=== PATIENT | male | born 1940 | race Caucasian/White ===

== ENCOUNTER 2016-08-23 08:26 | Inpatient (IN) | payer MEDICARE ==
--- NOTE | 2016-08-30 10:09 | HP ---
DATE OF CLINIC: 08/18/2016 ANI RENDON : 1940 PLANNED PROCEDURE: Right Total Hip Arthroplasty Revision DATE OF PROCEDURE: August 31, 2016 SURGEON: Shamar Williamson M.D. PCP: Dr. Artemio Mendez HISTORY OF PRESENT ILLNESS Ani Rendon is a 75 year old male. * Medication list reviewed with patient allergy list reviewed with patient. Mr. Rendon is in today with his for his upcoming revision right total hip arthroplasty with Dr. Williamson on 08/31/16. Patient presents in good spirits and is ready to proceed. He denies recent illness or change in health. Urinalysis suggest a UTI. Patient is asymptomatic. He denies any prior surgical complications. He has A-fib chronically and is anticoagulated with aspirin. His recent consult with Dr. Williamson follows: 75-year-old male who was initially seen in our office by Umang on 01/22/16 with a sensation of right hip and knee "clunking". He had a total hip arthroplasty by Dr. Brett Castellanos approximately 15 years ago and a right TKA by Dr. Mcdonald approximately 6 years ago. For greater than 6 months he has had atraumatic sensation of a mechanical clunk when he flexes his hip and knee under loads, such as rising from a chair. Radiographs showed no obvious areas of osteolysis, loosening or wear. His acetabular component appears to be neutral anteversion on the right. I examined him with Dr. Herzog under fluoroscopy of his right knee and hip on 05/04/16. With this we were able to provocate anterior instability of the acetabular component on flexion and external rotation with subluxation. He returns today for consideration of definitive management. He has had no change in symptoms. Comorbidities include chronic bilateral peripheral neuropathy, lumbar spondylosis, non-insulin dependent diabetes, hypertension and obesity. CURRENT MEDICATION * 4X Probiotic Tablet 1 once a day 0 days, 0 refills * Aspirin Adult Low Dose 81 MG Tablet Delayed Release 1 once a day 0 days, 0 refills * Atorvastatin Calcium 10 MG Tablet 1 once a day 0 days, 0 refills * B Complex Vitamins Capsule 1 once a day 0 days, 0 refills * Calcium Citrate + D 250-200 MG-UNIT Tablet 1 once a day 0 days, 0 refills * Gabapentin 300 MG Capsule as directed 3 tabs 4 times a day, 0 days, 0 refills * Mens 50+ Multi Vitamin/Min Tablet 1 once a day 0 days, 0 refills * MetFORMIN HCl 1000 MG Tablet 1 twice a day 0 days, 0 refills * TraMADol HCl 50 MG Tablet as directed 2 tabs 4 times a day, 0 days, 0 refills PAST MEDICAL/SURGICAL HISTORY Reported: Medical: A history of cancer prostate, Reported numbness, Reported tingling, cardiac history A-fib, Diabetes Mellitus, history of Arthritis, Hypertension, and Vertigo. Surgical / Procedural: Prior surgery BiPAP, replacement of a hip bilateral hip replacements, of a knee Right knee replaced, Cholecystectomy, Prostate Surgery 2010, Carpal Tunnel Surgery 2 times, Tonsilectomy, and Back Surgery neck fusion. SOCIAL HISTORY Behavioral: Caffeine use and non-smoker quit smoking stopped smoking in 1974 after smoking half a pack a day for 7 years. Smoking status: Former smoker. Work: Occupation Retired teacher. ALLERGIES * pollen REVIEW OF SYSTEMS Systemic: No fever and no recent weight change. Head: No head symptoms. Cardiovascular: Cardiovascular symptoms chronic A-fib. Pulmonary: No pulmonary symptoms. Gastrointestinal: No gastrointestinal symptoms. Psychological: No psychological symptoms. Skin: No skin lesions and no rash. PHYSICAL FINDINGS * Vitals taken 08/18/2016 01:11 pm BP-Sitting L 120/100 mmHg 100 - 120/60 - 80 BP Cuff Size Regular Pulse Rate-Sitting 59 bpm 50 - 100 Temp-Oral 97.3 F 96 - 101 Height 67 in 64 - 74 Weight 254 lbs 121 - 205 Body Mass Index 39.8 kg/m2 Body Surface Area 2.24 m2 Pain Level 1 Ears, Nose, Throat: * ENT: normal. Lungs: * Clear to auscultation. Cardiovascular: Heart Rate and Rhythm: * Abnormal irregularly irregular. Abdomen: * Normal. Neurological: Motor: * Dominant Hand = Right Hand. No formal physical exam of the right side was performed today. TESTS X-rays are as above with respect to the hip. Knee films show a cemented posterior stabilized arthroplasty with no evidence of osteolysis, loosening or wear. He does have thin, I believe this is a Bernie triathlon. He does have very thin poly, which is not easily visualized. Patellar button remains well centered in the groove. ASSESSMENT Right hip anterior instability 15 years s/p index procedure. PREVIOUS TESTS * Test: URINALYSIS WITH MICROSCOPIC Report Date: 08/11/2016 EPITHELIAL CELL 1-3 WBC 40-50 GLUCOSE NEGATIVE BACTERIA 1+ PH,URINE 5.0 SPEC. GRAVITY 1.020 KETONE NEGATIVE NITRITE NEGATIVE RBC 1-3 BLOOD 2+ BILIRUBIN NEGATIVE APPEARANCE HAZY PROTEIN TRACE COLOR YELLOW LEUK ESTERASE 2+ UROBILINOGEN NORMAL * Test: PROTHROMBIN TIME Report Date: 08/11/2016 PROTIME 10.0 s INR 0.95 * Test: PARTIAL THROMBOPLASTIN TIME Report Date: 08/11/2016 APTT 26.1 s * Test: CBC WITH DIFF Report Date: 08/11/2016 WBC 10.0 10*3/mL MCV 96.1 fL High BASOPHIL 0.4 % RBC 4.65 10*6/uL Low NEUTROPHILS 66.5 % MCH 30.8 pg MCHC 32.0 g/dL Low RDW 12.4 % PLATELET COUNT 239 10*3/mL IMM NEUT % 0.2 % IMM NEUT # 0.0 10*3/mL MONOCYTES 7.3 % EOSINOPHIL 2.1 % HCT 44.7 % HGB 14.3 g/L LYMPHOCYTE 23.5 % ANC 6.6 10*3/mL * Test: COMPREHENSIVE METABOLIC PANEL Report Date: 08/11/2016 ALT/SGPT 18 U/L ALBUMIN 4.1 g/dL ALB/GLOB RATIO 1.5 BUN 35 mg/dL High BUN/CREAT RATIO 23 High CALCIUM 9.5 mg/dL GLUCOSE 102 mg/dL High CREATININE 1.5 mg/dL High SODIUM 139 meq/L POTASSIUM 4.9 meq/L CHLORIDE 102 meq/L CARBON DIOXIDE 26 meq/L ANION GAP 16 meq/L TOT PROTEIN 6.9 g/dL GLOBULIN 2.8 g/dL BILI,TOTAL 0.3 mg/dL AST/SGOT 19 U/L ALK PHOSPHATASE 117 U/L High GFR 46 Low * Test: URINE CULTURE Report Date: 08/13/2016 URINE CULTURE [id number] Enterococcus faecalis ENTFAE ENTEROCOCCUS FAECALIS L [id number] ENTEROCOCCUS FAECALIS * Test: MRSA SCREEN Report Date: 08/12/2016 MRSA SCREEN NEGATIVE * Test: MSSA SCREEN Report Date: 08/12/2016 MSSA SCREEN POSITIVE FOR STAPHYLOCOCCUS AUREUS Abnormal * Test: GRAM POS SENSITIVITIES (RICKI) Report Date: 08/13/2016 GRAM POS SENSITIVITIES (RICKI) 10,000 - 20,000 S THERAPY * Patient fall risk screen positive. * Patient eligible for fall risk assessment. * Patient received fall risk assessment. PLAN * OTHER OxyCONTIN 10 MG T12A, 1 po q 12 hours-TO BE USED FOR AFTER SURGERY, 10 days, 0 refills TraMADol HCl 50 MG TABS, 1 po q 6 hours prn pain-TO BE USED FOR AFTER SURGERY, 5 days, 0 refills OxyCODONE HCl 5 MG TABS, 1-2 po q 4-6 hours for break thru pain if needed-TO BE USED FOR AFTER SURGERY, 5 days, 0 refills Cipro 250 MG TABS, 1 po q 12 hours, 5 days, 0 refills * Wear of artic bearing surface of int prosth r hip jt, init Physical Therapy: [facility] * Total hip replacement -Right Revision Discussed with patient in detail the limitations, expectations as well as risks and possible complications of surgery including, but not limited to wound problems or infection, neurovascular injury, continued hip pain or dysfunction, postop instability including the possibility of dislocation and/or postop leg length discrepancy, and the possibility of prosthetic wear or failure over time that may require additional operative or non-operative treatment. Patient also realizes the perioperative risks including risks associated with anesthesia and would like to proceed. A full PAR conference was held, questions and concerns addressed and informed consent was obtained. Patient will be sent from my office for completion of the preoperative workup. [facility]. Patient will use enteric coated aspirin 325mg daily for 6 weeks postoperatively for DVT prophylaxis. Patient would like to perform their postop PT at [facility] with right total hip arthroplasty protocol, posterior hip precautions. CARE TEAM Artemio Mendez DO [facility] CC: Artemio Mendez DO [facility] RS/sg
[2016-08-31] MEDS ORDERED: CEFAZOLIN SODIUM 2 GRAM PREMIX 100 ML IV PRN (05:30)
[2016-08-31] MEDS ORDERED: CLONIDINE HCL 0.1 MG/24 HR (7 DAY PATCH) TD SCH (05:30)
[2016-08-31] MEDS ORDERED: TRAMADOL HCL 50 MG TABLET PO ONE (05:30)
[2016-08-31] MEDS ORDERED: ONDANSETRON 4 MG/2ML 2 ML VIAL IV ONE (05:30)
[2016-08-31] MEDS ORDERED: GABAPENTIN 600 MG TABLET PO ONE (05:30)
[2016-08-31] MEDS ORDERED: CELECOXIB 200 MG CAPSULE PO ONE (05:30)
[2016-08-31] MEDS ORDERED: OXYCODONE HCL 10 MG TAB.SR PO ONE ×2 (05:30→06:20)
[2016-08-31] MEDS ORDERED: FAMOTIDINE 20 MG TABLET PO ONE (05:30)
[2016-08-31] MEDS ORDERED: IV START KIT ONE (05:33)
[2016-08-31] MEDS ORDERED: LACTATED RINGERS 1,000 ML ONE ×2 (05:33→07:20)
[2016-08-31] MEDS ORDERED: TRAMADOL HCL 50 MG TABLET ONE (06:20)
[2016-08-31] MEDS ORDERED: FAMOTIDINE 20 MG TABLET ONE (06:20)
[2016-08-31] MEDS ORDERED: CELECOXIB 200 MG CAPSULE ONE (06:20)
[2016-08-31] MEDS ORDERED: CLONIDINE HCL 0.1 MG/24 HR (7 DAY PATCH) TD ONE (06:20)
[2016-08-31] MEDS ORDERED: ONDANSETRON 4 MG/2ML 2 ML VIAL ONE ×2 (06:20→09:08)
[2016-08-31] MEDS ORDERED: GABAPENTIN 600 MG TABLET ONE (06:20)
[2016-08-31] MEDS ORDERED: FENTANYL 100 MCG/2 ML VIAL ONE (06:29)
[2016-08-31] MEDS ORDERED: LIDOCAINE 2% (PRES FREE) 5 ML VIAL ONE (06:29)
[2016-08-31] MEDS ORDERED: PROPOFOL 20 ML IV ONE ×2 (06:29)
[2016-08-31] MEDS ORDERED: MIDAZOLAM HCL 5 MG/5 ML VIAL ONE (06:29)
[2016-08-31] MEDS ORDERED: SPINAL PROCEDURAL TRAY 1 EACH ONE (07:07)
[2016-08-31] MEDS ORDERED: POLYMYXIN B SULFATE 500,000 UNITS, BACITRACIN 25,000 UNITS in SODIUM CHLORIDE 3 L IRRIG... IR PRN (07:50)
[2016-08-31] MEDS ORDERED: BUPIVACAINE 0.25% (MDV) 24 ML, MORPHINE SULFATE 8 MG, EPINEPHRINE 0.3 MG in SODIUM CHLO... IF PRN (07:50)
[2016-08-31] MEDS ORDERED: TRANEXAMIC ACID 1,000 MG in SODIUM CHLORIDE 0.9% 100 ML IV PRN (07:50)
[2016-08-31] MEDS ORDERED: BUPIVACAINE 0.25% (MDV) 20 ML in SODIUM CHLORIDE 0.9% FLUSH 20 ML IF PRN (07:50)
[2016-08-31] MEDS ORDERED: EPHEDRINE SULFATE UD SYR 25 MG 25 MG/5 ML SYRINGE IV ONE ×2 (08:24→09:28)
[2016-08-31] MEDS ORDERED: MIDAZOLAM HCL 1 MG/ML 2ML VIAL ONE (08:52)
[2016-08-31] MEDS ORDERED: FAMOTIDINE 10 MG/ML 2ML VIAL ONE (09:08)
[2016-08-31] MEDS ORDERED: ATROPINE SULFATE 0.4 MG/1 ML VIAL IV PRN (10:07)
[2016-08-31] MEDS ORDERED: FENTANYL 100 MCG/2 ML VIAL IV PRN (10:07)
[2016-08-31] MEDS ORDERED: ONDANSETRON 4 MG/2ML 2 ML VIAL IV PRN ×2 (10:07→11:21)
[2016-08-31] MEDS ORDERED: PROMETHAZINE HCL 25 MG/ML VIAL IM PRN (10:07)
[2016-08-31] MEDS ORDERED: NALOXONE HCL 0.4 MG/ML VIAL IV PRN (10:07)
[2016-08-31] MEDS ORDERED: HYDROMORPHONE HCL 1 MG/ML SYRINGE IV PRN (10:07)
[2016-08-31] MEDS ORDERED: LACTATED RINGERS 1,000 ML IV SCH (10:15)
--- NOTE | 2016-08-31 11:19 | RAD ---
PELVIS HISTORY: Status post total hip arthroplasty revision. Frontal portable radiograph of the lower pelvis and hips. COMPARISON: 01/22/2016. FINDINGS: POSTPROCEDURAL CHANGE: Status post right total hip arthroplasty revision. Evidence of prior left hip arthroplasty and prostatectomy. ALIGNMENT: Grossly anatomic. FRACTURE: None identified. ADDITIONAL POSTPROCEDURAL FINDINGS: Soft tissue gas. LUMBAR SPINE: Prominent features of disc degeneration. IMPRESSION: Grossly unremarkable immediate post arthroplasty appearance of the right hip.
[2016-08-31] MEDS ORDERED: OXYCODONE HCL 5 MG TABLET PO PRN (11:21)
[2016-08-31] MEDS ORDERED: HYDROMORPHONE HCL 0.5 MG/0.5 ML SYRINGE IV PRN (11:21)
[2016-08-31] MEDS ORDERED: CALCIUM CARBONATE 500 MG TAB.CHEW PO PRN (11:21)
[2016-08-31] MEDS ORDERED: KETOROLAC TROMETHAMINE 30 MG/ML 1 ML VIAL IV PRN (11:21)
[2016-08-31 12:52] VITALS: BMI 39.2
[2016-08-31] MEDS ORDERED: PUMP TUBING ONE (13:01)
[2016-08-31] MEDS: D5 1/2NS with 20 mEq KCL 1,000 ML IV SCH ×2 (13:15→21:53)
[2016-08-31] MEDS ORDERED: CEFAZOLIN SODIUM 1 GM IV ONE (16:50)
[2016-08-31] MEDS: CEFAZOLIN SODIUM 1 GRAM PREMIX 1 G in Premix (D5W) 50 ml 1 EACH IV SCH (16:59)
[2016-08-31] MEDS: TRAMADOL HCL 50 MG TABLET PO SCH ×2 (16:59→21:53)
[2016-08-31] MEDS: ACETAMINOPHEN 500 MG TABLET PO SCH (16:59)
[2016-08-31] MEDS ORDERED: INSULIN ASPART (DOSE) 100 UNITS/1 ML SUB-Q PRN (17:13)
--- NOTE | 2016-08-31 17:34 | CONS ---
ANI GO : 1940 CONSULTATION DATE OF ADMISSION: August 31, 2016 CHIEF COMPLAINT: Right total hip arthroplasty revision. REASON FOR CONSULTATION: To help with medical management of Mr. Go's chronic medical conditions following right total hip revision with Dr. Williamson today. HISTORY OF PRESENT ILLNESS: The patient is a morbidly obese 75-year-old male who has had bilateral hip arthroplasties with the left originally being replaced in 1999 due to osteoarthritis. The arthroplasty components were found to be broken down and causing him increased pain and he had a revision today. Currently he has no complaints and is doing well. His pain is well controlled. REVIEW OF SYSTEMS: GENERAL: No fevers. ENT: Congestion. No throat pain or ear pain. CARDIOVASCULAR: No chest pain or pressure. RESPIRATORY: No difficulty in breathing, no cough. ABDOMEN: No nausea, vomiting, abdominal pain. GENITOURINARY: No difficulty with urination. MUSCULOSKELETAL: Arthritis. NEUROLOGIC: He has numbness and tingling in his hands and feet. No headaches. PAST MEDICAL HISTORY: Includes: 1. Diabetes. 2. Hypertension. 3. Prostate cancer. 4. Peripheral neuropathy. 5. Paroxysmal atrial fibrillation. 6. Gait instability. 7. Chronic kidney disease stage 3. ALLERGIES: NONE. PAST SURGICAL HISTORY: 1. Bilateral hip arthroplasties. 2. Cholecystectomy. 3. Carpal tunnel release. 4. Radical retropubic prostatectomy. 5. Knee arthroplasty. 6. Neck fusion. MEDICATIONS: Include: 1. Probiotic. 2. Aspirin. 3. Atorvastatin. 4. B complex. 5. Calcium citrate plus vitamin D. 6. Gabapentin. 7. Multivitamin. 8. Metformin. 9. Tramadol. SOCIAL HISTORY: Patient is a retired teacher tutor. He has had two marriages and two divorces. He denies any alcohol, tobacco or marijuana. PHYSICAL EXAM: VITAL SIGNS: Temperature 98, blood pressure 108/47, heart rate 67, saturating 100% on 2 liters per nasal cannula. GENERAL: He is alert and oriented, morbidly obese. Not in acute distress. Cooperative. HEENT: Normocephalic, atraumatic. No tenderness to palpation. His mucous membranes are moist. His pupils are equal, round and reactive. Extraocular muscles are intact. There is no scleral icterus or conjunctival injection. NECK: Supple. Trachea midline. CARDIOVASCULAR: Regular, positive S1 and S2. He has palpable pulses bilaterally radially. RESPIRATORY: Clear to auscultation bilaterally. No rhonchi or wheezing. ABDOMEN: Soft, nontender. No distention, no rebound or guarding. MUSCULOSKELETAL: Moving extremities without difficulty. NEUROLOGIC: He is alert and oriented. LABORATORIES: Laboratory studies on August 11, 2016, he had a white blood cell count of 10.0, hemoglobin 14.3, with a hematocrit of 44, and a platelet count of 239. PT of 10.0 seconds and an INR of 0.95. Sodium 139, potassium 4.9, chloride 102, carbon dioxide 26, BUN 35 with a creatinine of 1.5, glucose of 102. ASSESSMENT: This is a 75-year-old male postoperative day one of a right total hip revision consult for medical management of his chronic medical conditions. PLAN: 1. Diabetes. We will put him on a diabetic diet and provide sliding scale meal coverage and resume his metformin on discharge. 2. Hypertension, stable. We will continue his home medications. 3. Paroxysmal atrial fibrillation. We will monitor for symptoms and treat as necessary. 4. Peripheral neuropathy. We will continue his gabapentin and for his gait instability, we will have him work with physical therapy. 5. Chronic kidney disease. We will monitor his renal function and provide IV fluids as necessary. Thank you for this consultation.
[2016-08-31] MEDS: GABAPENTIN 300 MG CAPSULE PO SCH (21:52)
[2016-08-31] MEDS: DOCUSATE SODIUM 100 MG CAPSULE PO SCH (21:53)
[2016-08-31] MEDS: ASCORBIC ACID 500 MG TABLET PO SCH (21:53)
[2016-08-31] MEDS: ATORVASTATIN CALCIUM 10 MG TABLET PO SCH (21:53)
[2016-09-01] MEDS: CEFAZOLIN SODIUM 1 GRAM PREMIX 1 G in Premix (D5W) 50 ml 1 EACH IV SCH (00:32)
[2016-09-01] MEDS: ACETAMINOPHEN 500 MG TABLET PO SCH ×5 (00:33→23:14)
[2016-09-01] MEDS ORDERED: REMOVE PATCH 1 EACH UNIT TD SCH (05:30)
[2016-09-01] MEDS: D5 1/2NS with 20 mEq KCL 1,000 ML IV SCH ×3 (06:07→19:51)
[2016-09-01 06:14] LABS: HEMATOCRIT 34.4 % (32.0-52.0); HEMOGLOBIN 10.8 gm/l (14.0-18.0); MEAN CELL VOLUME 97.2 fl (80.0-94.0); MEAN CORPUSCULAR HEMOGLOBIN 30.5 pg (27.0-31.0); MEAN CORPUSCULAR HGB CONC 31.4 g/dl (33.0-37.0); RED CELL DISTRIBUTION WIDTH 12.3 % (11.5-14.5)
[2016-09-01 06:42] LABS: CALCIUM 8.1 mg/dL (8.6-10.3)
[2016-09-01] MEDS: GABAPENTIN 300 MG CAPSULE PO SCH ×4 (08:26→20:56)
[2016-09-01] MEDS: CELECOXIB 200 MG CAPSULE PO SCH (08:26)
[2016-09-01] MEDS: ASPIRIN (ENTERIC COATED) 325 MG TABLET.EC PO SCH (08:27)
[2016-09-01] MEDS: ASCORBIC ACID 500 MG TABLET PO SCH ×2 (08:27→20:56)
[2016-09-01] MEDS: DOCUSATE SODIUM 100 MG CAPSULE PO SCH ×2 (08:27→20:56)
[2016-09-01] MEDS: MULTIVITAMINS 1 TAB TABLET PO SCH (08:28)
[2016-09-01] MEDS: TRAMADOL HCL 50 MG TABLET PO SCH ×4 (08:28→20:56)
[2016-09-01] MEDS ORDERED: POLYETHYLENE GLYCOL 3350 17 G POWD.SUSP PO PRN (08:33)
[2016-09-01] MEDS ORDERED: FUROSEMIDE 20 MG TABLET PO ONE (08:34)
--- NOTE | 2016-09-01 08:49 | PDOC43 ---
- Subjective Chief Complaint: RTH revision Patient doing well. Pain controlled. Denies shortness of breath, chest pain. He is tolerating diet Subjective: Reports Pain Tolerable, Reports Tolerating Diet Well, Reports Adequate Oral Intake, Denies Shortness of Breath, Denies Cough, Denies Chest Pain, Denies Abdominal Pain, Denies Nausea, Denies Vomiting - Objective Vital Signs Temperature 98.8 F 09/01/16 07:30 Pulse Rate 60 09/01/16 07:30 Respiratory Rate 20 09/01/16 07:30 Blood Pressure 130/66 09/01/16 07:30 O2 Saturation by Pulse Oximetry 94 09/01/16 07:30 Oxygen Delivery Method Room Air Oxygen Flow Rate 0 Intake and Output 08/30/16 08/31/16 09/01/16 23:59 23:59 23:59 Intake Total 4050 1669 Output Total 1550 1300 Balance 2500 369 General: Alert, Oriented x3, Cooperative, Other (morbidly obese), No Acute Distress HEENT: Atraumatic, PERRLA, EOMI, Mucous membr. moist/pink Lungs: Clear to Auscultation Bilaterally, Normal Air Movement Cardiovascular: Regular Rate and Rhythm, Normal S1, Normal S2 Abdomen: Soft, Mild Distention, No Rigid, No Tenderness, No Rebounding Extremities: Edema, No Cyanosis, No Tenderness Neurological: Normal Speech Psych/Mental Status: Normal Mood Laboratory 09/01/16 05:30 09/01/16 05:30 09/01/16 09/01/16 08/31/16 08:30 05:30 20:54 RBC 3.54 L MCV 97.2 H MCHC 31.4 L Estimated GFR 50 L POC Capillary Glucose 131 H 107 H Calcium 8.1 L 08/31/16 11:16 RBC MCV MCHC Estimated GFR POC Capillary Glucose 103 H Calcium Current Medications: Current meds reviewed in EMR. - Problems: Assessment/Plan (1) History of right hip replacement Status: AcuteAssessment/Plan: S/P revision, post-op day 1. Managed per ortho recommendations (2) Obesity (BMI 35.0-39.9 without comorbidity) Status: ChronicAssessment/Plan: complicates medical care (3) Hypertension Status: ChronicAssessment/Plan: stable (4) DMII (diabetes mellitus, type 2) Qualifiers: Diabetes mellitus complication status: with neurologic complications Diabetes mellitus complication detail: with polyneuropathy Diabetes mellitus assisted insulin use: without terminal operations supervisor use Qualifier Code: ( E11.42) Type 2 diabetes mellitus with diabetic polyneuropathy Status: ChronicAssessment/Plan: stable, continue medications (5) CKD (chronic kidney disease) stage 3, GFR 30-59 ml/min Status: SuspectedAssessment/Plan: monitor, contributes to elevated potassium. Cre 1.5 pre-op labs and 1.4 today. (6) Peripheral neuropathy Qualifiers: Peripheral neuropathy type: polyneuropathy, unspecified Qualifier Code : (G62.9) Polyneuropathy, unspecified Status: ChronicAssessment/Plan: unknown etiology, continue gabapentin. Contributes to poor gait stability (7) Gait instability Status: ChronicAssessment/Plan: 2nd to peripheral neuropathy and patient has falls at home due to decreased plantar sensation. Work with PT (8) Hyperkalemia Status: AcuteAssessment/Plan: elevation overnight. Will give dose of lasix and monitor
[2016-09-01] MEDS ORDERED: REMOVE PATCH 1 EACH UNIT TD ONE (10:41)
[2016-09-01] MEDS ORDERED: MAGNESIUM HYDROXIDE 30 ML UDCUP PO PRN (10:41)
--- NOTE | 2016-09-01 18:01 | PDOC43 ---
- Subjective Subjective: Reports Pain Tolerable, Reports Other (subtle point tenderness at the mid lateral calf last night), Denies Shortness of Breath, Denies Nausea, Denies Vomiting - Objective Vital Signs Temperature 98.0 F 09/01/16 13:16 Pulse Rate 50 09/01/16 13:16 Respiratory Rate 20 09/01/16 14:00 Blood Pressure 110/56 09/01/16 13:16 O2 Saturation by Pulse Oximetry 95 09/01/16 13:16 Oxygen Delivery Method Room Air Oxygen Flow Rate 0 Laboratory 09/01/16 05:30 09/01/16 05:30 09/01/16 09/01/16 09/01/16 11:48 08:30 05:30 RBC 3.54 L MCV 97.2 H MCHC 31.4 L Estimated GFR 50 L POC Capillary Glucose 121 H 131 H Calcium 8.1 L 08/31/16 20:54 RBC MCV MCHC Estimated GFR POC Capillary Glucose 107 H Calcium Active Medication Orders Category Date Time Status Acetaminophen [Tylenol] Med 08/31/16 17:00 Active 1,000 mg PO Q6H Ascorbic Acid [Vitamin C] Med 08/31/16 21:00 Active 500 mg PO BID Aspirin (Enteric Coated) [Ecotrin] Med 09/01/16 09:00 Active 325 mg PO DAILY Atorvastatin Calcium [Lipitor] Med 08/31/16 21:00 Active 10 mg PO BEDTIME Bisacodyl [Dulcolax] Med 09/03/16 10:41 Active 10 mg CA DAILY PRN Calcium Carbonate [Tums] Med 08/31/16 11:21 Active 1,000 - 2,000 mg PO Q2H PRN Celecoxib [Celebrex] Med 09/01/16 09:00 Active 200 mg PO DAILY D5 1/2NS with 20 mEq KCL [D51/2NS with 20 mEq KCL] 1, Med 08/31/16 11:21 Active 000 ml IV 125 mls/hr Docusate Sodium [Colace] Med 08/31/16 21:00 Active 100 mg PO BID Gabapentin [Neurontin] Med 08/31/16 21:00 Active 900 mg PO QID Hydromorphone HCl [Dilaudid] Med 08/31/16 11:21 Active 0.5 mg IV Q1H PRN Insulin Aspart (Dose) [Novolog (Dose)] Med 08/31/16 17:13 Active See Protocol SUB-Q TIDWM PRN Magnesium Hydroxide [Milk of Magnesia] Med 09/01/16 10:41 Active 30 ml PO DAILY PRN Multivitamins [One-A-Day] Med 09/01/16 09:00 Active 1 tab PO DAILY Ondansetron 4 mg/2ml Vial [Zofran] Med 08/31/16 11:21 Active 4 - 6 mg IV Q6H PRN Oxycodone HCl [Roxicodone] Med 08/31/16 11:21 Active 5 - 10 mg PO Q4H PRN Polyethylene Glycol 3350 [Miralax] Med 09/01/16 08:33 Active 17 g PO DAILY PRN Sodium Chloride 0.9% Flush [Normal Saline 10ml Flush] Med 08/31/16 11:21 Active 10 - 50 ml IV PRN PRN Sodium Chloride 0.9% Flush [Normal Saline 10ml Flush] Med 08/31/16 17:00 Active 10 ml IV Q8HR Tramadol HCl [Ultram] Med 08/31/16 17:00 Active 100 mg PO QID Intake and Output 08/30/16 08/31/16 09/01/16 23:59 23:59 23:59 Intake Total 4050 2670 Output Total 1550 1702 Balance 2500 968 General: No Acute Distress Lungs: Normal Air Movement Abdomen: No Tenderness Psych/Mental Status: Normal Affect - Right Lower Extremity Motor: Extensor Hallucis Longus: 5/5, Tibialis Anterior: 5/5, Gastrocnemius: 5/5 , Peroneals: 5/5, Quadriceps: 4/5 Gross Sensation to Light Touch: Present: Deep Peroneal Nerve (peripheral neuropathy, diminished foot sensation, pre existing) Motion: Right hip PROM: flexion to 60 derees, no pain ABD to 30 degrees, no pain ADD to 10 degrees, no pain - Problems (1) History of right hip replacement Status: Acute - Disposition POD #1 Right hip revision, liner exchange Pain control with pain pills DVT prophylaxis PT: WBAT with PT assist/walker, posterior hip precautions. Dressing change tomorrow [facility] controlled and clears PT. Ortho appreciates collaboration with Hospitalist team.
[2016-09-01] MEDS: ATORVASTATIN CALCIUM 10 MG TABLET PO SCH (20:56)
[2016-09-02] MEDS: D5 1/2NS with 20 mEq KCL 1,000 ML IV SCH (04:54)
[2016-09-02] MEDS: ACETAMINOPHEN 500 MG TABLET PO SCH ×3 (05:35→16:52)
[2016-09-02 07:02] LABS: HEMATOCRIT 32.5 % (32.0-52.0); HEMOGLOBIN 10.5 gm/l (14.0-18.0)
[2016-09-02 07:14] LABS: CALCIUM 8.1 mg/dL (8.6-10.3)
[2016-09-02] MEDS: MULTIVITAMINS 1 TAB TABLET PO SCH (08:25)
[2016-09-02] MEDS: DOCUSATE SODIUM 100 MG CAPSULE PO SCH (08:26)
[2016-09-02] MEDS: ASCORBIC ACID 500 MG TABLET PO SCH (08:26)
[2016-09-02] MEDS: CELECOXIB 200 MG CAPSULE PO SCH (08:26)
[2016-09-02] MEDS: TRAMADOL HCL 50 MG TABLET PO SCH ×2 (08:26→15:33)
[2016-09-02] MEDS: GABAPENTIN 300 MG CAPSULE PO SCH ×2 (08:27→15:33)
[2016-09-02] MEDS: ASPIRIN (ENTERIC COATED) 325 MG TABLET.EC PO SCH (09:00)
--- NOTE | 2016-09-02 09:20 | SURGPATH ---
[facility] [address] [place] [address] Patient Name: ANI GO MR#: [id number] : 1940 Gender: M Specimen #: [id number] Collected: 08/31/2016 Received: 09/01/2016 Reported: 09/02/2016 Submitting Phys: HALLE MORENO A Copy To Phys: [facility] NA MILLER Clinical History / Pre-Operative Diagnosis: NOT PROVIDED Specimen Source / Surgical Procedure Performed: right hip synovium Intraoperative Consult: FSDX: 0-1 neutrophils per high power field/JANEL (Performed at [facility], [address] [place] [address], [facility]. Stain quality is good.) Interpretation: RIGHT HIP SYNOVIUM, EXCISION: - LESS THAN ONE NEUTROPHIL PER HPF Electronically Signed Out Na Alonzo M.D. Gross Description: The specimen is received fresh labeled with the patient's name and "right hip synovium". The specimen consists of a 2.0 x 1.0 x 0.5 cm aggregate of white-chua rubbery tissue fragments. The specimen was entirely submitted for frozen section diagnosis. 1A frozen section remnant of entire specimen ROSENDO Walker Microscopic Description: Microscopic performed. 1: 91462, 63221 M25.851
--- NOTE | 2016-09-02 10:10 | PDOC43 ---
- Subjective Findings: Ortho POD 2 Rev R ESTHER Patient awake, A and O times 4 this am and in good spirits. States he wants to go home today as he's been through this 4 times. No present c/o other than baseline hand pain secondary to chronic neuropathy. Hip pain is very well controlled. Denies CP/SOB/NV. Taking a regular diet and positive flatus. Good progress with ambulatory PT. Has support at [facility]. Subjective: Denies Chest Pain, Denies Shortness of Breath, Denies Nausea, Denies Vomiting, Denies Fever - Objective Vital Signs Temperature 97.8 F 09/02/16 07:30 Pulse Rate 62 09/02/16 08:30 Respiratory Rate 20 09/02/16 07:30 Blood Pressure 130/57 09/02/16 08:30 O2 Saturation by Pulse Oximetry 94 09/02/16 08:30 Oxygen Delivery Method Room Air Oxygen Flow Rate 0 Laboratory 09/02/16 06:10 09/02/16 06:10 09/02/16 09/01/16 09/01/16 06:10 20:55 11:48 BUN 26 H Estimated GFR 46 L POC Capillary Glucose 115 H 121 H Calcium 8.1 L Active Medication Orders Category Date Time Status Acetaminophen [Tylenol] Med 08/31/16 17:00 Active 1,000 mg PO Q6H Ascorbic Acid [Vitamin C] Med 08/31/16 21:00 Active 500 mg PO BID Aspirin (Enteric Coated) [Ecotrin] Med 09/01/16 09:00 Active 325 mg PO DAILY Atorvastatin Calcium [Lipitor] Med 08/31/16 21:00 Active 10 mg PO BEDTIME Bisacodyl [Dulcolax] Med 09/03/16 10:41 Active 10 mg MO DAILY PRN Calcium Carbonate [Tums] Med 08/31/16 11:21 Active 1,000 - 2,000 mg PO Q2H PRN Celecoxib [Celebrex] Med 09/01/16 09:00 Active 200 mg PO DAILY D5 1/2NS with 20 mEq KCL [D51/2NS with 20 mEq KCL] 1, Med 08/31/16 11:21 Active 000 ml IV 125 mls/hr Docusate Sodium [Colace] Med 08/31/16 21:00 Active 100 mg PO BID Gabapentin [Neurontin] Med 08/31/16 21:00 Active 900 mg PO QID Hydromorphone HCl [Dilaudid] Med 08/31/16 11:21 Active 0.5 mg IV Q1H PRN Insulin Aspart (Dose) [Novolog (Dose)] Med 08/31/16 17:13 Active See Protocol SUB-Q TIDWM PRN Magnesium Hydroxide [Milk of Magnesia] Med 09/01/16 10:41 Active 30 ml PO DAILY PRN Multivitamins [One-A-Day] Med 09/01/16 09:00 Active 1 tab PO DAILY Ondansetron 4 mg/2ml Vial [Zofran] Med 08/31/16 11:21 Active 4 - 6 mg IV Q6H PRN Oxycodone HCl [Roxicodone] Med 08/31/16 11:21 Active 5 - 10 mg PO Q4H PRN Polyethylene Glycol 3350 [Miralax] Med 09/01/16 08:33 Active 17 g PO DAILY PRN Sodium Chloride 0.9% Flush [Normal Saline 10ml Flush] Med 08/31/16 11:21 Active 10 - 50 ml IV PRN PRN Sodium Chloride 0.9% Flush [Normal Saline 10ml Flush] Med 08/31/16 17:00 Active 10 ml IV Q8HR Tramadol HCl [Ultram] Med 08/31/16 17:00 Active 100 mg PO QID Intake and Output 08/31/16 09/01/16 09/02/16 23:59 23:59 23:59 Intake Total 4050 2670 200 Output Total 1550 1702 350 Balance 2500 968 -150 Neurological: No Normal Gait (ambulating with a walker post revision R ESTHER) Peripheral Pulses: Right Posterior Tibialis: 1+, Right Dorsalis Pedis: 1+ - Right Lower Extremity Incision: Well Approximated (with a sub Q closure, skin glue and steris. Moderate thigh edema but SNT, calf SNT.), No Dressing Saturated, No Shadow Drainage, No Drainage, No Erythema, No Rash, No Jeannie Intact (none) Motor: Extensor Hallucis Longus: 5/5, Tibialis Anterior: 5/5, Gastrocnemius: 5/5 , Peroneals: 5/5, Quadriceps: 4/5 Gross Sensation to Light Touch: Present: Deep Peroneal Nerve, Superficial Peroneal Nerve, Medial Plantar Nerve, Lateral Plantar Nerve, Sural Nerve, Saphenous Nerve Motion: Supine Hip flexion to 60, abduction to 25, SLR without assist. Passive planes improved. Ankle: full AROM. - Disposition Ortho POD #2 Right hip revision, liner exchange Continue anticoagulation as written Continue PT: WBAT with PT assist/walker, posterior hip precautions. Dressing changed. May go without dressing and utilize underwear only. Anticipate D[facility]C [facility]. Appreciate Hospitalist care.
[2016-09-02 13:23] VITALS: BP 101/54
--- NOTE | 2016-09-03 09:57 | OP ---
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 PROCEDURE: Revision Arthroplasty Right Hip Acetabular Component and Femoral Head COMPONENTS: 20 degree series 2 polyethylene liner, 32mm delta ceramic femoral head with a +5 C-taper adaptor sleeve. SURGEON: Teri ASSIST: Christie (TREASURE) ANESTHESIA: Spinal EBL: 200 cc URINE OUTPUT: 125 cc IVF REPLACEMENT: Per anesthesia, 2.8 liters crystalloid DRAINS: None COMPLICATIONS: None PATHOLOGY: 1 specimen frozen section histopathologic analysis with 0:1 white blood cells per high powered field. HISTORY: Briefly, patient is a 75-year-old male who is s/p a primary ESTHER done elsewhere approximately 15 years ago. He has developed a clunk and sensation of instability. Fluoroscopic exam demonstrated instability of the hip prosthesis. Recommendation to proceed with revision arthroplasty. For additional details, refer to previously dictated Preoperative History and Physical Exam. A full PAR conference was held, questions and concerns were addressed, and informed consent was obtained. FINDINGS: Intraoperative findings showed fragmentation posterior acetabular liner and to several pieces with delamination obvious. I was able to demonstrate posterior instability on exam under direct visualization. Femoral component and acetabular shell were solid. PROCEDURE: The patient was taken to the operating room. Spinal anesthetic was administered. He was placed in the lateral decubitus position on the operating room table and held with the peg board positioner. Judson prominences were well padded and an axillary roll was placed. The right hip girdle and lower extremity were then prepped and draped out in the usual sterile fashion. Preoperative IV antibiotics were given empirically. Intraoperative DVT prophylaxis consisted of bilateral mechanical foot pumps. Personal filtration suits were used as was a closed room environment. After a WHO timeout the central 2/3 of the previous posterolateral incision was utilized. We dissected through subcutaneous and electrocautery was used at this point and throughout the duration of the case to establish and maintain hemostasis. The gluteus fascia as well as proximal aspect of the IT band were incised in line with the incision after creating our fascial plane. The muscle fibers split to expose the underlying scarred bursal tissue. Tranexamic acid was infiltrated over 10 minutes prior to incision, 1 gram dose per protocol. A similar 2nd dose was given at initiation of closure. A deep self retaining field retractor was placed. The pseudo-capsular tissue was intact. This was reflected off of the trochanter. There was no defined piriformis. This was done in a U fashion and tagged for later repair. Release of the capsule allowed for dislocation of the hip and the femoral head was brought up into the operative field. The cobalt chrome component was intact. This was disengaged from the trunnion. The trunnion itself showed minimal oxidation. We evaluated the proximal femur; as expected, there was no evidence of femoral stem failure. This was quite solid. We then established a pocket superiorly and anteriorly using blunt dissection techniques and translated the femur anteriorly exposing the acetabular component. There was obvious fragmentation of the posterior liner. This was cleaned of soft tissue as well as superior and posterior osteophytes under direct visualization. We then disengaged this with a screw technique. The apical hole cover was removed. The acetabular component itself was solid and in reasonable alignment. After debridement we placed acetabular trials. I was happiest with the 20 degree lip. We placed femoral trials as well and a 0.5 established good soft tissue balance, reasonably equal leg lengths and with reduction had stability to 65 degrees of IR and 90 degrees of flexion and full extension with no instability on external rotation. Satisfied, trial components were removed and we impacted the true acetabular polyethylene with the apex of the lip at the direct posterior position. The trunnion was then cleaned and dried and the femoral head was impacted after placement of a universal sleeve. The hip was then reduced with stability as previously discussed. Satisfied, we turned our attention to closure. The wound was copiously irrigated with antibiotic pulsatile lavage. We then advanced the pseudo-capsule to the gluteus medius insertion. The gluteus fascia and IT band were closed with interrupted #1 Vicryl. 1st periarticular injection was given at this point per protocol into the capsule, synovium, gluteus medius and external rotators. The subcutaneous tissue was closed with interrupted 2-0 and 3-0 Vicryl and the skin was closed with a running 4-0 Monocryl stitch with Indermil and Steri-Strips. The 2nd periarticular injection was done at this point per protocol into the subcutaneous tissue superiorly and anteriorly to the incision. A sterile hip dressing was then applied, the patient was returned to the supine position, transferred to their hospital bed, and sent to the postoperative recovery room in stable condition. They tolerated the procedure well. Sponge, instrument, and needle count were correct. TITO/mrw CC: Artemio Mendez DO, PT [facility]
--- NOTE | 2016-09-03 09:58 | DS ---
Jose C GO [id number] : 1940 DATE OF ADMISSION: August 31, 2016 DATE OF DISCHARGE: September 02, 2016 DISCHARGE DIAGNOSES: Revision right total hip acetabular liner and femoral head. HOSPITAL PROCEDURES: Right total hip arthroplasty revision. SURGEON: Shamar Williamson M.D. BRIEF HISTORY: Patient is a 75-year-old male with both clinical and radiographic evidence of right hip instability secondary to component wear this requiring revision. For the full history please see the chart note. BRIEF HOSPITAL COURSE: Patient was admitted on August 31, 2016 Dr. Shamar Williamson performed a revision right total hip acetabular liner and femoral head. Patient was moved to the recovery room in stable condition. They were given 4 doses of antibiotic for empiric coverage. DVT prophylaxis consisted of aspirin 325 mg daily, pneumatic compression ZOE hose and mobility. PT was instituted postop day 1 with right total hip arthroplasty protocol, weightbearing as tolerated. Their incision site remained benign, their vital signs remained stable and they remained neurally and vascularly intact through the duration of the stay. They were discharged home postop day, 2 to his adult senior care facility where he resides and has a good support network, he will be doing his outpatient PT at [facility] with right total hip arthroplasty protocol, weightbearing as tolerated keeping posterior hip precautions in mind. Kirit Harding M.D. consulted to manage perioperative medical comorbidities for his consultation see the chart note. DISCHARGE INSTRUCTIONS: 1. Keep the wound site clean and dry, change dressing daily or as needed. 2. Continue the use of ZOE hose bilaterally. 3. Ice pack over the wound site prn. 4. Continue total hip precautions. 5. Outpatient PT at [facility] with right posterior hip arthroplasty protocol, weightbearing as tolerated. MEDICATIONS: 1. Patient is to resume normal preop medications. 2. Anti-coagulation will be with aspirin 325 mg daily for six weeks. 3. Pain management will be with OxyContin, 10mg every 12 hours x 10 days, Oxycodone, 5mg 1-2 every 4 hours prn for breakthrough pain, and Tramadol, 50mg every 6 hours prn pain. 4. Patient was also advised on utilization of a multi-vitamin with mineral daily as well as Vitamin C, 500mg, daily for 1 month. 5. Patient encouraged to take an iron supplement in the form of ferrous sulfate, 325mg daily for 4 weeks. 6. Colace, 100mg, b.i.d. until regular bowel movement. FOLLOW-UP: Please return to the clinic as scheduled for your first scheduled postop check. Prior to that point in time please call with any questions or concerns. Job [id number] CC: [place] Mihir Mendez M.D. [facility] in [place]
[2016-09-03] MEDS ORDERED: BISACODYL 10 MG SUP PR PRN (10:41)
== END 2016-09-02 17:55 | disposition home or self-care (01) | DRG 468 ==
LOC: OR 08-31 05:28 → MS 08-31 11:26
PROVIDERS: ADMIT Orthopaedic Surgery; ATTEND Orthopaedic Surgery
PROC: 0SUR09Z Supplement Right Hip Joint, Femoral Surface with Liner, Open Approach (ICD-10-PCS; principal; 2016-08-31)
PROC: 0SP909Z Removal of Liner from Right Hip Joint, Open Approach (ICD-10-PCS; 2016-08-31)
DX: T84.020A Dislocation of internal right hip prosthesis, initial encounter (principal); E11.42 Type 2 diabetes mellitus with diabetic polyneuropathy; M47.896 Other spondylosis, lumbar region; I10 Essential (primary) hypertension; E66.01 Morbid (severe) obesity due to excess calories; C61 Malignant neoplasm of prostate; I48.0 Paroxysmal atrial fibrillation; I12.9 Hypertensive chronic kidney disease with stage 1 through stage 4 chronic kidney disease, or unspecified chronic kidney disease; E11.22 Type 2 diabetes mellitus with diabetic chronic kidney disease; N18.3 Chronic kidney disease, stage 3 (moderate)